=== PATIENT | female | born 1985 | race African-American/Black ===

== ENCOUNTER → 2016-09-07 | Outpatient (CLI) | payer OTHER ==
[~2016-09-07] VITALS: Ht 157.5 cm; Wt 64.0 kg
[~2016-09-07] MED LIST: CYCLOBENZAPRINE 10 MG TAB PO SCH; PRENTAB9 PO
[2016-09-07 09:09] VITALS: BP 126/75
[2016-09-07 10:23] VITALS: BP 121/83
--- NOTE | 2016-09-07 19:46 | HPE ---
DATE OF ADMISSION: 09/07/2016 This lady is a 31-year-old 3, para 0, abortus 2, last menstrual period (LMP) 04/08/2016, estimated date of confinement (EDC) 01/13/2017. She is at 21 and 6 weeks of gestation. 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 She is a twin gestation with dichorionic/diamniotic (di/di) twins. Past history: 2004, spontaneous (AB). 2005, spontaneous AB. Labs are O+, HIV negative, hepatitis negative, RPR negative, rubella immune. Varicella immune. Pap normal. Urine negative. Gonorrhea and chlamydia negative, Blood pressure is 126/75, temperatures 98.0, respirations are 18, pulse 93. Urine is 1.010, pH 7, negative, negative, negative. She is not on 17 hydroxyprogesterone. She was told to discontinue the vaginal progesterone at 12 weeks. On examination, she appears to be distressed, holding her back, massaging her low back between L5 and S1. Symphysis fundus height is 24, heart rate times two is normal. There is no contractions noted. The cervix is closed, posterior. No vaginal loss or bleeding or discharge. Examination of her back you can see muscular spasm in the low back on the long muscles between L5 and S1 and with deep massage they tend to relax a bit, however she tenses up again. The rest of the examination is unremarkable. She is normocephalic, atraumatic. Neck full range of motion. Distal pulses symmetric. No evidence of deep venous thrombosis (DVT), pulmonary embolus (PE) or superficial phlebitis. Chest is clear bilaterally to bases. No wheezes or rhonchi. No CVA tenderness. Symphysis fundus height is appropriate. Four quadrant bowel sounds. No contractions are noted. She has no rashes or lesions. She has multiple tattoos. No pruritus. No arthralgia, myalgia. No complaints of cough, wheeze, shortness of breath or dyspnea on exertion. No chest pain. She is neurologically complete. No incontinency or urgency. No nausea, vomiting, diarrhea or constipation. Past surgical history: She has had a cyst on her coccyx which has been removed. She does not smoke or drink, does not abuse drugs. She is . There is no domestic violence. She is active duty. 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 We offered her Flexeril, hydration, off work with massage and we gave her quarters for 48 hours to come to the office to change her profile. All questions were answered. Pelvic rest with no intercourse was advised and the patient was discharged undelivered.
== END ==
LOC: M LDO 08:46
PROVIDERS: ATTEND Obstetrics & Gynecology
DX: O26.892 Other specified pregnancy related conditions, second trimester (principal); O30.042 Twin pregnancy, dichorionic/diamniotic, second trimester; Z3A.21 21 weeks gestation of pregnancy

== ENCOUNTER 2016-09-08 07:56 | Inpatient (IN) | payer OTHER ==
[2016-09-08] VITALS (7 sets, daily range): BP systolic 125–135; BP diastolic 77–88
[~2016-09-08] VITALS: Ht 157.5 cm; Wt 63.0 kg
[~2016-09-08 07:56] MED LIST changes: -CYCLOBENZAPRINE 10 MG TAB PO SCH
[2016-09-08] MEDS: LR 1,000 ML IV SCH ×2 (08:32→16:32)
[2016-09-08] MEDS ORDERED: LACTATED RINGER'S 1000 ML IV ONE (08:45)
[2016-09-08 08:50] LABS: MEAN CORPUSCULAR HGB CONC 33.6 g/dl (32.0-36.5); MEAN CORPUSCULAR VOLUME 98.1 fl (80.0-96.0); RED CELL DISTRIBUTION WIDTH 14.2 % (11.5-14.5); WHITE BLOOD COUNT 9.7 K/mm3 (4.0-10.0)
[2016-09-08 08:54] LABS: AMPHETAMINES URINE REFLEX NEGATIVE (NEGATIVE); BARBITURATES URINE REFLEX NEGATIVE (NEGATIVE); BENZODIAZEPINES URINE REFLEX NEGATIVE (NEGATIVE); COCAINE METABOLITE URINE REFLE NEGATIVE (NEGATIVE); CONTROL LINE INT CTR LINE PRESENT; METHADONE URINE REFLEX NEGATIVE (NEGATIVE); OPIATES URINE REFLEX NEGATIVE (NEGATIVE); TRICYCLIC ANTIDEPRESS UR REFL NEGATIVE (NEGATIVE)
[2016-09-08 08:57] LABS: ALT/SGPT 29 U/L (12-78); AST/SGOT 25 U/L (15-37); BILIRUBIN,TOTAL 0.3 MG/DL (0.2-1.0); CREATININE FOR GFR 0.65 MG/DL (0.55-1.02); GLOMERULAR FILTRATION RATE > 60.0 (>60)
[2016-09-08] MEDS ORDERED: PROMETHAZINE INJ 25 MG/ML VIAL (J2550) IV ONE (11:00)
[2016-09-08] MEDS ORDERED: BUTORPHANOL 2 MG/ML INJ (J0595) IV ONE (11:00)
--- NOTE | 2016-09-08 11:18 | REP ---
Transabdominal OB ultrasound performed, 09/08/2016: Indication: Twin gestation, cramping and vaginal bleeding. Findings: Diamniotic dichorionic twins are noted. Twin A: The placenta is anterior, grade 0, without previa or abruption. For twin B the placenta is posterior grade 0, also without previa or abruption. The cervix is completely dilated and the membranes are bulging. There is concordant growth for both twins. Fetus A: Amniotic fluid volume is subjectively normal. Intrauterine fetus in variable position on maternal left. Amniotic fluid is subjectively normal. Deepest pocket of amniotic fluid is 6.7 cm. According to today's ultrasound fetus should be 22 week 3 day. EFW 492 grams corresponding to 58th percentile. The heart rate is 160 beats per minute by M-mode. Amniotic fluid index is 6.7, deepest pocket. BPD 5.1 cm = 21 week 3 day HC 19.5 cm = 21 week 5 day AC 17.0 cm = 22 week 0 day FL 4.0 cm = 22 week 6 day HC to AC ratio 1.15. Cephalic index 0.71. Fetus B: Fetus B is in variable position on the maternal right of 22 week 2 day gestational age according to today's ultrasound. Amniotic fluid is subjectively normal. Deepest pocket of amniotic fluid is 8 cm. EFW 489 grams responding to 57th percentile. heart rate 150 beats per minute by M-mode. Amniotic fluid index 8.0 (deepest pocket). Fetus A anatomy: cranium, choroid plexus, cavum, cerebellum, posterior fossa, face and profile, lungs, four-chamber heart, diaphragm, left-sided stomach, cord insertion, three-vessel cord, kidneys and bladder are within normal limits. Fetus B: cranium, choroid plexus, cavum, lungs, diaphragm, left-sided stomach, cord insertion, three-vessel cord, kidneys and bladder are normal. Impression:Diamniotic dichorionic twins with fetus A in variable position on maternal left. The placenta anterior grade 0 without previa or abruption. Fetus A is of 22 week 3 day gestational age according to today's ultrasound. Amniotic fluid index within normal limits. Nuchal cord was not visualized. Twin B in variable position on maternal right. Placenta is posterior, grade 0. A nuchal cord was identified for twin B. The amniotic fluid is subjectively normal with 8 cm depth of greatest pocket. Fully dilated cervix with bulging membranes. Please refer to echocardiography technologist worksheets 09/08/2016. Case discussed with Nurse rehabilitation clerk Aracely in Labor and Delivery on 09/08/2016 at 1045 am. Signed by Libia Mao MD 09/09/2016 10:55 A
[2016-09-08] MEDS ORDERED: LIDOCAINE VISCOUS 2% SOLN 15ML UDC SS PRN (11:30)
[2016-09-08] MEDS: BUTORPHANOL 2 MG/ML INJ (J0595) IV PRN ×3 (13:43→22:27)
[2016-09-08] MEDS: PROMETHAZINE INJ 25 MG/ML VIAL (J2550) IM PRN (22:28)
[2016-09-09] VITALS (8 sets, daily range): BP systolic 102–132; BP diastolic 67–83
[2016-09-09] MEDS: LR 1,000 ML IV SCH ×4 (00:32→16:45)
[2016-09-09] MEDS: BUTORPHANOL 2 MG/ML INJ (J0595) IV PRN ×4 (09:29→23:00)
--- NOTE | 2016-09-09 10:37 | IPNPDOC ---
Text Note Date of Service The patient was seen on 09/09/16 at 10:18. NOTE I assumed care of Janie at [address] Sexton. In brief, Janie is a 31yo with di-di twin gestation via IVF at 21w6d today who is currently admitted for PTL/advanced cervical dilation. She originally presented on 09/07 after 24hr work duty with some cramping/back pain, and per report was found to have closed thick cervix with no evidence of PTL. Was given flexeril and discharged home. She re-presented yesterday, 09/08 with vaginal bleeding and contractions and was found to be fully dilated with bulging bag. PNC consult performed with recommendation to continue as long as possible, but no transfer until 23wk gestation when nearer viability. No indication for antibiotics or tocolytics or steroids, only bedrest in reverse Trendelenburg with SCDs. Since admission and overnight Janie has had 2 doses of IV stadol/phenergan for ctx-related pain. However, this morning she was pain free when I rounded on her and has required no further pain medication. She has anglin in place to maintain bedrest. She denies f/c/n/v/SOB/CP. Has had slight vaginal bleeding but no loss of fluid. Feels movement. Vitals wnl, afebrile Exam: WDWN, NAD Abdomen: gravid, soft, NTTP Perineum: scant blood, no fluid Labs: Negative sequential screen MBT O positive WBC count 9.7, H/H 12/35.8, plt 104 creat 0.65 urine drug screen negative Radiology: TAUS on admission showed twin A 58%ile (492g), FHR 160bpm, MVP >2cm, placenta anterior, twin B 57% (489g), FHR 150bpm, MVP >2cm, placenta posterior. Both twins had variable presentations. Ultrasound showed fully dilated cervix with bulging membranes. Assessment: Janie is a 31yo with di-di twin gestation via IVF at 21w6d today who is currently admitted for PTL/advanced cervical dilation, completely dilated with bulging membranes. No evidence of infection with WBC count 9.7, afebrile. No evidence of abruption. Negative UDS. status reassuring x2. Thrombocytopenia noted with plt 104. Plan: -Continue routine antepartum care -Bed rest in reverse Trendelenburg with anglin catheter and SCDs -Regular diet -NST q4hr -repeat CBC tomorrow am -Spoke with Dr. Woodson, NICU Dr, this morning regarding consult to discuss with patient that no resuscitation will be performed prior to 23wk gestation given poor prognosis and give her a small summary of what to expect if she does continue her beyond 23wk -Plan for transfer to [place] for further care if sustained to 23wk ( at that time would receive betamethasone and IV Magnesium) -All questions answered for patient this morning to her apparent satisfaction -Earlier delivery would be indicated for chorioamnionitis/sepsis or maternal hemorrhage Dr. Mary Rose MD [place] OBERICN VS,Pradeepe, I+O VS, Pradeepe, I+O Vital Signs Date Time Temp Pulse Resp B/P Pulse Ox O2 Delivery O2 Flow Rate FiO2 09/09/16 09:29 18 09/08/16 18:26 97.3 97 132/78 09/08/16 16:49 Room Air I&O- Last 24 Hours up to 6 AM 09/09/16 06:00 Intake Total 2600 ml Output Total 750 ml Balance 1850 ml MARY ROSE MD Sep 09, 2016 10:36
[2016-09-09] MEDS: PROMETHAZINE INJ 25 MG/ML VIAL (J2550) IM PRN (19:32)
--- NOTE | 2016-09-09 20:15 | IPNPDOC ---
Text Note Date of Service The patient was seen on 09/09/16 at 20:10. NOTE Mid-shift Update Please see my note from this morning for thorough history, labs/rads, plan, etc Telethia complained earlier of gush of fluid. Still has bloody show, not obvious amniotic fluid. Nitrazine pressed to her bedsheets and labia, which was grossly positive, but the presence of blood makes it equivocal. She is also having more cramping pain. TAUS performed by this provider showed +FCA x2, MVP >2 x2, dividing membrane freely movable between the twins. Twin A is currently cephalic and Twin B is currently breech. Vitals wnl, afebrile Will await for more definitive evidence of rupture of membranes and consider starting PPROM abx if it is confirmed. Expectant management for now as both twins have FCA and no signs of infection or hemorrhage. Dr. Nadia Rose MD [place] RASHARD VS,Harjinder, I+O VS, Harjinder, I+O Vital Signs Date Time Temp Pulse Resp B/P Pulse Ox O2 Delivery O2 Flow Rate FiO2 09/09/16 19:33 18 Room Air 09/09/16 18:38 98.4 107 114/67 I&O- Last 24 Hours up to 6 AM 09/09/16 06:00 Intake Total 2600 ml Output Total 750 ml Balance 1850 ml NADIA ROSE MD Sep 09, 2016 20:15
[2016-09-10] MEDS: PROMETHAZINE INJ 25 MG/ML VIAL (J2550) IV PRN ×3 (02:48→17:51)
[2016-09-10] MEDS: BUTORPHANOL 2 MG/ML INJ (J0595) IV PRN ×5 (02:49→22:32)
[2016-09-10 06:34] VITALS: BP 105/67
[2016-09-10 07:21] LABS: BASO % 0.1 % (0.0-1.0); EOS % 0.5 % (0.0-3.0); LARGE UNSTAINED CELL # 0.1 K/mm3 (0.0-0.4); LARGE UNSTAINED CELL % 1.1 % (0.0-4.0); LYMPH % 10.5 % (24.0-44.0); MEAN CORPUSCULAR HEMOGLOBIN 32.9 pg (27.0-33.0); MEAN CORPUSCULAR HGB CONC 33.9 g/dl (32.0-36.5); MONO # 0.4 K/mm3 (0.0-0.8); MONO % 3.6 % (0.0-5.0); NEUTROPHILS # 8.3 K/mm3 (1.8-7.7); NEUTROPHILS % 84.1 % (36.0-66.0); PLATELET COUNT, AUTOMATED 100 k/mm3 (150-450); RED CELL DISTRIBUTION WIDTH 14.3 % (11.5-14.5); WHITE BLOOD COUNT 9.9 K/mm3 (4.0-10.0)
[2016-09-10 07:27] LABS: ADD MORPHOLOGY? YES
[2016-09-10 07:58] LABS: PLATELET CLUMPS SMALL AMT
[2016-09-10] MEDS: LR 1,000 ML IV SCH ×3 (08:19→16:32)
[2016-09-10 08:22] VITALS: BP 115/70
[2016-09-10] MEDS ORDERED: ADACEL/BOOSTRIX VACCINE (DIPHTH/PERTUSS/ACELL/TETANUS)0.5ML SYR (90715) IM ONE (09:00)
--- NOTE | 2016-09-10 09:18 | IPNPDOC ---
Text Note Date of Service The patient was seen on 09/10/16 at 08:26. NOTE Please see yesterday morning's note for detailed patient history/labs/rads/etc I spoke with Janie and her this morning- he was able to fly in from [place] late last night and I wanted to answer any questions he might have. She required 2 doses of stadol overnight but this morning feeling no pain. Only having continued scant vaginal bleeding, no obvious fluid loss. Doptones 150's/ 150's. CBC repeated to re-eval WBC and plt, both stable (WBC 9.9, H/H 11/32.4, plt 100 from admission WBC 9.7, H/H 12/35.8, plt 104). I re-asserted our intention to continue the as long as possible, but I spoke with the couple regarding risk for infection now that her membranes are exposed with cervix fully dilated and let them know that if she does begin to have an infection, we would need to expedite delivery for her safety. I let her know we would also need to do this if she began bleeding heavily and required multiple blood transfusions. The couple voiced their understanding. Continue expectant management. If sustained to 23wk, will transfer to [place] with administration of first betamethasone for lung maturity and starting IV Mg for neuroprotection. MD Darrell Scales,Harjinder, I+O VS, Harjinder, I+O Laboratory Tests 09/10/16 07:08 Red Blood Count 3.34 L, Mean Corpuscular Volume 97.0 H, Mean Corpuscular Hemoglobin 32.9, Mean Corpuscular Hemoglobin Concent 33.9, Red Cell Distribution Width 14.3, Neutrophils (%) (Auto) 84.1 H, Lymphocytes (%) (Auto) 10.5 L, Monocytes (%) (Auto) 3.6, Eosinophils (%) (Auto) 0.5, Basophils (%) ( Auto) 0.1, Neutrophils # (Auto) 8.3 H, Lymphocytes # (Auto) 1.0 L, Monocytes # ( Auto) 0.4, Eosinophils # (Auto) 0.0, Basophils # (Auto) 0.0 Vital Signs Date Time Temp Pulse Resp B/P Pulse Ox O2 Delivery O2 Flow Rate FiO2 09/10/16 02:49 18 09/09/16 21:58 98.7 109 112/67 09/09/16 19:33 Room Air I&O- Last 24 Hours up to 6 AM 09/10/16 06:00 Intake Total 2115 ml Output Total 3900 ml Balance -1785 ml MARY CLEMENTS MD Sep 10, 2016 08:47
[2016-09-10] MEDS ORDERED: LIDOCAINE 2% JELLY 30 ML TOP ONE (09:30)
[2016-09-10 11:35] VITALS: BP 108/75
[2016-09-10 15:43] VITALS: BP 108/68
[2016-09-10 20:03] VITALS: BP 115/83
[2016-09-11] VITALS (7 sets, daily range): BP systolic 112–134; BP diastolic 66–80
[2016-09-11] MEDS: LR 1,000 ML IV SCH ×3 (00:32→16:37)
[2016-09-11] MEDS: PROMETHAZINE INJ 25 MG/ML VIAL (J2550) IV PRN (01:57)
[2016-09-11] MEDS: BUTORPHANOL 2 MG/ML INJ (J0595) IV PRN ×4 (01:57→22:44)
[2016-09-11] MEDS: DOCUSATE SODIUM 100 MG CAP PO SCH ×2 (09:15→21:51)
[2016-09-11] MEDS: PRENATAL VITAMIN TAB PO SCH (09:15)
[2016-09-11] MEDS: LIDOCAINE 2% JELLY 30 ML TOP PRN (16:37)
[2016-09-12] VITALS (7 sets, daily range): BP systolic 111–136; BP diastolic 59–78
[2016-09-12] MEDS ORDERED: ONDANSETRON 4MG/2ML VIAL (J2405) As Ordered ONE (02:24)
[2016-09-12] MEDS: ONDANSETRON 4MG/2ML VIAL (J2405) IV PRN ×2 (02:32→22:57)
[2016-09-12] MEDS: BUTORPHANOL 2 MG/ML INJ (J0595) IV PRN ×4 (04:48→18:35)
[2016-09-12 05:48] LABS: BASO # 0.1 K/mm3 (0.0-0.2); BASO % 0.7 % (0.0-1.0); EOS # 0.1 K/mm3 (0.0-0.50); LARGE UNSTAINED CELL # 0.1 K/mm3 (0.0-0.4); LARGE UNSTAINED CELL % 1.3 % (0.0-4.0); LYMPH % 8.6 % (24.0-44.0); MEAN CORPUSCULAR HEMOGLOBIN 31.7 pg (27.0-33.0); MEAN CORPUSCULAR HGB CONC 32.3 g/dl (32.0-36.5); MEAN CORPUSCULAR VOLUME 98.1 fl (80.0-96.0); MONO # 0.4 K/mm3 (0.0-0.8); MONO % 4.1 % (0.0-5.0); NEUTROPHILS # 8.3 K/mm3 (1.8-7.7); NEUTROPHILS % 84.3 % (36.0-66.0); PLATELET COUNT, AUTOMATED 101 k/mm3 (150-450); RED CELL DISTRIBUTION WIDTH 14.8 % (11.5-14.5); WHITE BLOOD COUNT 9.9 K/mm3 (4.0-10.0)
--- NOTE | 2016-09-12 07:07 | IPNPDOC ---
Text Note Date of Service The patient was seen on 09/12/16 at 07:03. NOTE See prior notes She required 2 doses of stadol overnight but this morning feeling wel. No vaginal bleeding, no obvious fluid loss. Would like to have a BM, knows not to valsalva. CBC repeated this AM, WBC 9.9, H/H 11/34.1, plt 101, all stable, no dropping PLT or increasing WBC. VSSAF Abdomen nontender limited TAUS shows A-breech, active, FHR 150's, nl fluid surrounding B-vtx, active, FHR 150's, nl fluid surrounding Continue expectant management until 31JAN, 23 wks. If sustained to 23wk, will transfer to [place] with administration of first betamethasone for lung maturity and starting IV Mg for neuroprotection, possibly IV ABX as well. Sessions MD MAURO,Harjinder, I+O VS, Harjinder I+O Laboratory Tests 09/12/16 05:15 Red Blood Count 3.48 L, Mean Corpuscular Volume 98.1 H, Mean Corpuscular Hemoglobin 31.7, Mean Corpuscular Hemoglobin Concent 32.3, Red Cell Distribution Width 14.8 H, Neutrophils (%) (Auto) 84.3 H, Lymphocytes (%) (Auto ) 8.6 L, Monocytes (%) (Auto) 4.1, Eosinophils (%) (Auto) 1.0, Basophils (%) ( Auto) 0.7, Neutrophils # (Auto) 8.3 H, Lymphocytes # (Auto) 1.0 L, Monocytes # ( Auto) 0.4, Eosinophils # (Auto) 0.1, Basophils # (Auto) 0.1 Vital Signs Date Time Temp Pulse Resp B/P Pulse Ox O2 Delivery O2 Flow Rate FiO2 09/12/16 04:59 98.7 20 09/12/16 04:49 88 112/78 09/11/16 22:44 Room Air I&O- Last 24 Hours up to 6 AM 09/12/16 06:00 Intake Total 3175 ml Output Total 3200 ml Balance -25 ml SESSIONS,JORDON Barnhart MD Sep 12, 2016 07:07
[2016-09-12] MEDS ORDERED: BISACODYL 10 MG SUPP PR SCH (09:00)
[2016-09-12] MEDS: DOCUSATE SODIUM 100 MG CAP PO SCH ×2 (09:17→20:43)
[2016-09-12] MEDS: PRENATAL VITAMIN TAB PO SCH (09:17)
[2016-09-12] MEDS: LR 1,000 ML IV SCH (09:18)
[2016-09-12] MEDS ORDERED: BISACODYL 10 MG SUPP PR ONE (10:15)
[2016-09-12] MEDS ORDERED: MOM 30ML SUSPENSION UDC PO PRN (10:15)
[2016-09-12] MEDS: PROMETHAZINE INJ 25 MG/ML VIAL (J2550) IV PRN ×2 (10:40→18:34)
[2016-09-12] MEDS: diphenhydrAMINE INJ 50MG/ML VIAL (J1200) IV PRN ×2 (15:19→21:24)
[2016-09-12] MEDS: CYCLOBENZAPRINE 10 MG TAB PO PRN ×2 (15:19→20:44)
[2016-09-12] MEDS: LIDOCAINE 2% JELLY 30 ML TOP PRN (20:00)
[2016-09-13] MEDS: PROMETHAZINE INJ 25 MG/ML VIAL (J2550) IV PRN (00:42)
[2016-09-13] MEDS: BUTORPHANOL 2 MG/ML INJ (J0595) IV PRN (00:43)
[2016-09-13] MEDS ORDERED: OXYTOCIN 30 UNITS IN 0.9% NaCl 500ML IV BAG (J2590) As Ordered ONE (02:37)
[2016-09-13 02:52] VITALS: BP 123/69
[2016-09-13 02:58] VITALS: BP 107/68
[2016-09-13] MEDS ORDERED: FENTANYL 2MCG/ML ROPIVACAINE 0.2% NACL 250 ML CADD As Ordered ONE (03:02)
[2016-09-13 03:18] VITALS: BP 118/74
[2016-09-13 03:46] LABS: MEAN CORPUSCULAR HEMOGLOBIN 31.8 pg (27.0-33.0); MEAN CORPUSCULAR HGB CONC 32.8 g/dl (32.0-36.5); RED CELL DISTRIBUTION WIDTH 13.8 % (11.5-14.5); WHITE BLOOD COUNT 10.8 K/mm3 (4.0-10.0)
[2016-09-13] MEDS ORDERED: OXYTOCIN DRIP 30 UNITS in APPROPRIATE DILUENT 1 EA IV SCH (04:33)
[2016-09-13] MEDS ORDERED: IBUPROFEN 600 MG TAB PO PRN (04:45)
[2016-09-13] MEDS ORDERED: MEASLES,MUMPS,RUBELLA VACCINE INJ (MMR-II) (90707) SC SCH (04:45)
[2016-09-13] MEDS ORDERED: DIBUCAINE 1% OINTMENT 30GM TOP PRN (04:45)
[2016-09-13] MEDS ORDERED: ANUSOL HC CREAM 30GM TOP PRN (04:45)
[2016-09-13] MEDS ORDERED: OXYTOCIN INJ 10 UNITS/ML VIAL (J2590) IV ONE (04:45)
[2016-09-13] MEDS ORDERED: METHYLERGONOVINE MALEATE 0.2 MG TAB PO PRN (04:45)
[2016-09-13] MEDS ORDERED: ACETAMINOPHEN 500 MG TAB PO PRN (04:45)
[2016-09-13] MEDS ORDERED: RHOGAM 300 MCG (1500 IU) INJ (J2790) IM SCH (04:45)
[2016-09-13] MEDS ORDERED: REFRIGERATOR IV KEYS XX PRN (07:15)
[2016-09-13] MEDS ORDERED: EPIDURAL COMMENT XX SCH (07:15)
[2016-09-13] MEDS ORDERED: FENTANYL/ROPIVACAINE/NACL CADD 250 ML EPIDURAL SCH (07:15)
[2016-09-13] MEDS ORDERED: EPIDURAL/PCA KEYS XX PRN (07:15)
[2016-09-13] MEDS ORDERED: LACTATED RINGER'S 1000 ML IV PRN (07:15)
[2016-09-13] MEDS ORDERED: ePHEDrine SULFATE 25 MG/5 ML(5MG/ML) SYRINGE IV PRN (07:15)
[2016-09-13] MEDS ORDERED: COLA100C PO (10:03)
[2016-09-13] MEDS ORDERED: IBUP600T26 PO (10:03)
[2016-09-13] MEDS ORDERED: ACET500C PO (10:03)
[2016-09-13] MEDS ORDERED: DIBU0.5O TOP (10:03)
--- NOTE | 2016-09-25 09:55 | DSES ---
DATE OF ADMISSION: 09/08/2016 DATE OF DISCHARGE: 09/13/2016 This lady, dated 09/08/2016, returned after 24 hours of being evaluated in labor and delivery because she was having some vaginal bleeding and irregular contractions. She was known at this time to have Di/Di twins. Her past history is that she had two spontaneous abortions. She saw Dr. Turner, infertility. She had in vitro fertilization (IVF) due to low sperm count in the . She also had a consult with Dr. Mcgregor regarding an echogenic intracardiac focus (EIF) and declined further testing. When she was admitted this second time, there was a heart rate noted in either sac. Pelvic examination there was obviously bulging membranes. She was fully dilated. Position at that time was not documented. We used an ultrasound in order to confirm there were Di/Di twins, active, approximately 490 grams and 484 grams. Position was variable because of the activity of the fetus. Thy were at approximately 22 weeks of gestation with normal amniotic fluid index (BILL) in both sacs. On admission, her blood pressure [id number]/81, respirations were 18, pulse was 98. Her hemoglobin was 12.2, hematocrit 35.8, and at that time we noticed that she had platelets of 100 and throughout her course hospital she gestational thrombocytopenia. She had been seen in centering classes for six visits. She had normal weight gain. She does not do drugs. She does not smoke. She does no alcohol. 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 She was given some Flexeril, which gave her some immediate relief. Her blood group was O+, HIV negative, hepatitis negative, RPR negative. Varicella negative. Pap was normal. Urine was negative. Gonorrhea and chlamydia were negative. CF was negative. Dr. Mcgregor was consulted at this time and he suggested if she is having imminent delivery 22 weeks there was a poor prognosis. There was no indication at this time for antibiotics, steroids or tocolysis, and the plan was to send the placentas and do a Betke-Kleihauer, do a drug screen, which we did, all was negative. Reviewed the plan of care with the patient. Said if she can get into 23 weeks then [facility] would accept her. However, we have a guarded prognosis. She had agreed to the plan of management. She was placed in Trendelenburg, had sequentials on board, incentive spirometry, monitoring as per protocol. Appropriate pain management and hydration were indicated. Patient did continue on until 22 weeks. At which time, we were called because the patient had expressed excruciating pressure and she had contractions, and despite adequate pain management she continued on, had a spontaneous rupture of membranes of twin A, delivered a live male infant 448 grams, of 2 and 2 at one of five minutes respectively, delivered at 2:34 a.m. She went on to continue in labor and delivered twin B female after spontaneous rupture of membranes, 498 grams, of 2 and 2 at one and five minutes respectively, at 4:48 a.m. Both babies to closer to the 6:00 a.m. in the morning and compassionate care was given to both. Patient spontaneously delivered both placentas with no issues, no consequence. They were sent to pathology indicating Di/Di twins. There was clot in placenta A. No evidence of chorioamnionitis. Patient's uterus contracted well with Pitocin. Minimal bleeding. She wished to be discharged as soon as possible. We suggested an appropriate interval time to make sure everything was fine and the patient and agreed. On discharge, patient was afebrile. Neuro complete. Blood pressure, pulse and respirations were normal limits. She was not bleeding. She was counseled regarding bleeding, fever, hemorrhage, infection. The patient did not request autopsy for either infant. Did request to have the babies released and be looked after by the appropriate home. All papers and documents were signed. In summary, we have a 3, para 1, history of in vitro fertilization (IVF), 22 weeks of gestation, had a labor with dilatation and spontaneous rupture of membranes, delivery of nonviable infant twin A male and twin B female. The gestational thrombocytopenia will be addressed at her checkup. We will review her complete blood count (CBC). Drug screen was negative. Betke-Kleihauer was negative and placentas were sent to pathology as appropriately. Patient was discharged to followup in the office. She was also offered grief counseling, but she has good family support and suggested that she was not needing of it at this time. However, if she did need extra support she would definitely call. We spent 25 minutes on discharge discussion about the future , timing, etc, and I said that we should address that at an appropriate discussion consultation visit.
== END 2016-09-13 10:45 | disposition home or self-care (01) | DRG 775 ==
LOC: M LDO 07:56 → M LDI 08:05 → M OBS 09-12 18:04 → M LDI 09-13 01:38
PROVIDERS: ADMIT Obstetrics & Gynecology; ATTEND Obstetrics & Gynecology
PROC: 10E0XZZ Delivery of Products of Conception, External Approach (ICD-10-PCS; principal; 2016-09-13)
DX: O42.012 Preterm premature rupture of membranes, onset of labor within 24 hours of rupture, second trimester (principal); O99.12 Other diseases of the blood and blood-forming organs and certain disorders involving the immune mechanism complicating childbirth; Z37.2 Twins, both liveborn; O30.042 Twin pregnancy, dichorionic/diamniotic, second trimester; Z3A.22 22 weeks gestation of pregnancy; D69.6 Thrombocytopenia, unspecified; O64.1XX1 Obstructed labor due to breech presentation, fetus 1; O64.1XX2 Obstructed labor due to breech presentation, fetus 2

== ENCOUNTER → 2016-12-18 | Outpatient (CLI) | payer OTHER ==
[~2016-12-18] MED LIST changes: +ACET500C PO; +COLA100C3 PO; +DIBU0.5O TOP; +IBUP600T26 PO
[2016-12-18 14:54] LABS: ESTRADIOL 682.7 PG/ML; FOLLICLE STIMULATING HORMONE < 0.3 mIU/mL
[2016-12-18 15:22] LABS: HCG, SERUM QUANTITATIVE 944 MIU/ML
== END ==
LOC: M LAB 11:49
PROVIDERS: ATTEND Obstetrics & Gynecology Reproductive Endocrinology
DX: Z32.00 Encounter for pregnancy test, result unknown (principal); N97.9 Female infertility, unspecified

== ENCOUNTER 2017-02-03 08:43 | Emergency (ER) | payer OTHER ==
[~2017-02-03] VITALS: Ht 157.5 cm; Wt 60.2 kg
[~2017-02-03 08:43] MED LIST changes: -COLA100C3 PO; +COLA100C5 PO; +IBUP-1022 PO; -IBUP600T26 PO
[2017-02-03] MEDS ORDERED: ENDO100S VA (09:14)
[2017-02-03 11:48] LABS: BASO % 0.2 % (0.0-1.0); EOS # 0.1 K/mm3 (0.0-0.50); EOS % 0.9 % (0.0-3.0); LARGE UNSTAINED CELL # 0.1 K/mm3 (0.0-0.4); LARGE UNSTAINED CELL % 1.3 % (0.0-4.0); LYMPH # 1.1 K/mm3 (1.5-6.5); LYMPH % 16.5 % (24.0-44.0); MEAN CORPUSCULAR HEMOGLOBIN 29.3 pg (27.0-33.0); MEAN CORPUSCULAR HGB CONC 33.3 g/dl (32.0-36.5); MEAN CORPUSCULAR VOLUME 87.9 fl (80.0-96.0); MONO # 0.2 K/mm3 (0.0-0.8); MONO % 2.9 % (0.0-5.0); NEUTROPHILS # 4.9 K/mm3 (1.8-7.7); NEUTROPHILS % 78.1 % (36.0-66.0); PLATELET COUNT, AUTOMATED 186 k/mm3 (150-450); RED CELL DISTRIBUTION WIDTH 16.5 % (11.5-14.5); WHITE BLOOD COUNT 6.2 K/mm3 (4.0-10.0)
--- NOTE | 2017-02-03 12:05 | REP ---
REASON: Vaginal bleeding. No pertinent priors. Within the uterus, there is an anechoic structure with increased echoes surrounding it consistent with a decidual reaction. Within the gestational sac, there is echogenic material with a mean crown-rump length measurement of which is consistent with an 46-tgui-8-day gestational age. Base on that, the estimated date of delivery is 08/21/2017. Doppler interrogation of the pole shows a heart rate of 155 beats per minute. No chorionic or subchorionic abnormality was noted. A right adnexal cyst was seen measuring 2.2 cm. IMPRESSION: Early OB ultrasound as described above. Signed by Matt Bee DO 02/03/2017 03:58 P
[2017-02-03 12:18] LABS: ALBUMIN 3.4 GM/DL (3.2-5.2); ALBUMIN/GLOBULIN RATIO 0.89 (1.00-1.93); ALKALINE PHOSPHATASE 68 U/L (45-117); ALT/SGPT 18 U/L (12-78); ANION GAP 7 MEQ/L (8-16); AST/SGOT 12 U/L (15-37); BILIRUBIN,DIRECT < 0.1 MG/DL (0.0-0.2); BILIRUBIN,TOTAL 0.3 MG/DL (0.2-1.0); BLOOD UREA NITROGEN 7 MG/DL (7-18); CALCIUM LEVEL 9.4 MG/DL (8.5-10.1); CARBON DIOXIDE LEVEL 24 MEQ/L (21-32); CHLORIDE LEVEL 108 MEQ/L (98-107); CREATININE FOR GFR 0.63 MG/DL (0.55-1.02); GLOMERULAR FILTRATION RATE > 60.0 (>60); GLUCOSE, FASTING 79 MG/DL (70-105); HCG, SERUM QUANTITATIVE 79496 MIU/ML; SODIUM LEVEL 139 MEQ/L (136-145); TOTAL PROTEIN 7.2 GM/DL (6.4-8.2)
[2017-02-03 13:13] VITALS: BP 112/73
== END 2017-02-03 13:13 | disposition home or self-care (01) ==
LOC: M ED 10:12
DX: O20.9 Hemorrhage in early pregnancy, unspecified (principal); Z3A.11 11 weeks gestation of pregnancy

== ENCOUNTER 2017-03-08 07:59 | Emergency (ER) | payer OTHER ==
[~2017-03-08 07:59] MED LIST changes: +ENDO100S VA
[2017-03-08] MEDS ORDERED: ZOLO100T PO (08:15)
[2017-03-08 08:45] LABS: BASO % 0.1 % (0.0-1.0); EOS # 0.2 K/mm3 (0.0-0.50); EOS % 2.4 % (0.0-3.0); LARGE UNSTAINED CELL # 0.1 K/mm3 (0.0-0.4); LARGE UNSTAINED CELL % 1.4 % (0.0-4.0); MEAN CORPUSCULAR HEMOGLOBIN 29.8 pg (27.0-33.0); MEAN CORPUSCULAR HGB CONC 33.7 g/dl (32.0-36.5); MEAN CORPUSCULAR VOLUME 88.3 fl (80.0-96.0); MONO # 0.3 K/mm3 (0.0-0.8); MONO % 3.6 % (0.0-5.0); NEUTROPHILS # 5.8 K/mm3 (1.8-7.7); NEUTROPHILS % 79.5 % (36.0-66.0); PLATELET COUNT, AUTOMATED 157 k/mm3 (150-450); RED CELL DISTRIBUTION WIDTH 16.3 % (11.5-14.5); WHITE BLOOD COUNT 7.3 K/mm3 (4.0-10.0)
[2017-03-08] MEDS ORDERED: MICO1SUP2 PV (10:15)
[2017-03-08 10:43] VITALS: BP 105/73
--- NOTE | 2017-03-08 12:19 | REP ---
OB ULTRASOUND: Real-time sonographic evaluation of the gravid uterus performed utilizing transabdominal technique. There is a single living intrauterine gestation with an estimated gestational age of 15 weeks 2 days. EDC 08/28/2017. Today's measurements indicate appropriate growth. BPD 34 mm 16 weeks 3 days, 95th percentile HC 122 mm 16 weeks 1 day, 80th percentile AC 102 mm 16 weeks 1 day, 74th percentile FL 21 mm 16 weeks 1 day, 79th percentile HC/AC ratio 1.20 within normal range. Estimated weight 149 grams at the 84th percentile. Cervix is closed and measures 3.3 cm in length. heart rate 139 beats per minute. SEEN/GROSSLY UNREMARKABLE Lateral ventricles Yes Posterior fossa Yes Upper lip No Four-chamber heart No LVOT No RVOT No Stomach Yes Cord insertion Yes Three vessel cord Yes Kidneys Yes Bladder Yes Spine Yes position vertex. Placenta anterior and grade 0 with no previa or abruption. Amniotic fluid within normal limits. Signed by Jono Moreno MD 03/08/2017 03:20 P
== END 2017-03-08 10:46 | disposition home or self-care (01) ==
LOC: M ED 07:59
DX: O23.592 Infection of other part of genital tract in pregnancy, second trimester (principal); Z79.899 Other long term (current) drug therapy; Z3A.15 15 weeks gestation of pregnancy

== ENCOUNTER 2017-04-06 13:38 | Emergency (ER) | payer OTHER ==
[~2017-04-06] VITALS: Ht 157.5 cm; Wt 63.4 kg
[~2017-04-06 13:38] MED LIST changes: +MICO1SUP2 PV; +ZOLO100T PO
[2017-04-06] MEDS ORDERED: ZOLO100T PO (13:59)
[2017-04-06] MEDS ORDERED: PROG50IN5 IM (13:59)
[2017-04-06 16:18] VITALS: BP 133/64
--- NOTE | 2017-04-07 11:53 | REP ---
LIMITED OBSTETRIC SONOGRAPHY: HISTORY: Crampy watery discharge for amniotic fluid assessment. FINDINGS: Scanning through the gravid uterus demonstrates a viable single intrauterine gestation in a cephalic lie. heart rate is recorded at 133 beats per minute. An anterior placenta is seen without evidence of previa. Amniotic fluid is subjectively normal. BILL is normal at 11.7 cm. The S/D ratio in the umbilical cord artery by Doppler is slightly decreased at 3.46 (3.80-4.60). Closed cervical length viewed transvaginally is 3.9 cm. Signed by Favio Yanez MD 04/07/2017 12:37 P
--- NOTE | 2017-04-07 13:45 | ED PDOC ---
Post-Departure Follow-Up ft [facility] ob faxed formal re[port of obs us for fu debbieg Goyo Pickering MD Apr 07, 2017 13:45
== END 2017-04-06 16:20 | disposition home or self-care (01) ==
LOC: M ED 13:38
DX: O26.892 Other specified pregnancy related conditions, second trimester (principal); R10.2 Pelvic and perineal pain; Z3A.19 19 weeks gestation of pregnancy; N96 Recurrent pregnancy loss; Z79.899 Other long term (current) drug therapy

== ENCOUNTER 2017-06-07 16:31 | Outpatient (CLI) | payer OTHER ==
[~2017-06-07] VITALS: Ht 157.5 cm; Wt 70.5 kg
[~2017-06-07 16:31] MED LIST changes: +PROG50IN5 IM
[2017-06-07 16:46] VITALS: BP 121/77
--- NOTE | 2017-06-07 18:46 | HPE ---
DATE OF ADMISSION: 06/07/2017 HISTORY OF PRESENT ILLNESS: A 32-year-old 4, para 2, abortio 2, estimated date of confinement (EDC) 08/26/2017, at 23 weeks of gestation, came in saying that she had contractions but they stopped as soon as she got to labor and delivery. PAST HISTORY: She had delivery of twins at 22 weeks, , and she has significant depression. LABORATORY DATA: Labs are O positive, HIV negative, hepatitis negative, RPR negative, rubella immune. Varicella by history immune. Pap was normal. Gonorrhea, chlamydia negative. One-hour glucose is not available. She 24 hours ago had her progesterone shot. She is still 17-hydroxyprogesterone. Her last cervical length was within normal limits. EXAMINATION: On examination, no distress. Symphysis fundus height is 28, vertex, nontender uterus, four quadrant bowel sounds are noted. Not dilated, high posterior, closed. fibronectin (fFN) was performed. No vaginal bleeding. No loss of fluid. Blood pressure 121/77, respirations 18, pulse is 85 and temperature is 98.3. Urine is 1.010, pH seven, trace of leukocytes. She is normocephalic, atraumatic. Neck full range of motion. Pupils equal and reactive to light. Distal pulses symmetric. No evidence of deep venous thrombosis (DVT), pulmonary embolism (PE) or superficial phlebitis. Chest is clear bilaterally to bases. No wheezes or rhonchi. Nontender uterus. Four quadrant bowel sounds are noted. She has no rashes, lesions or pruritus with multiple tattoos. No arthralgia, myalgia. No complaints of cough, wheezes, shortness of breath or dyspnea on exertion. No chest pain. Not bleeding. Neuro complete. No incontinence, urgency or frequency. No nausea, vomiting, diarrhea or constipation. 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 MEDICAL HISTORY: Unremarkable. PAST SURGICAL HISTORY: Two dilation and curettage (D and C) for spontaneous abortions 2004 and 2005. FAMILY HISTORY: Noncontributory. SOCIAL HISTORY: She does not smoke, drink, abuse drugs. She is . There is no domestic violence. 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 PLAN: Our plan of management is do fFN. Precautions were given. She is to keep her appointment and she was discharged undelivered to followup in the office.
== END 2017-06-07 18:14 | disposition home or self-care (01) ==
LOC: M LDO 16:31
PROVIDERS: ATTEND Obstetrics & Gynecology
DX: O26.892 Other specified pregnancy related conditions, second trimester (principal); Z3A.23 23 weeks gestation of pregnancy

== ENCOUNTER 2017-08-18 11:50 | Emergency (ER) | payer OTHER ==
[2017-08-18 12:44] LABS: KETONE, URINE AUTO RFX NEGATIVE (NEGATIVE); NITRITE, URINE AUTO RFX NEGATIVE (NEGATIVE); RBC, URINE AUTO RFX 2 /HPF (0-3); SPECIFIC GRAVITY UR AUTO RFX 1.004 (1.002-1.035); SQUAM EPITHELIAL CELL UR AURFX 2 /HPF (0-6)
[2017-08-18 12:45] LABS: LEUKOCYTE ESTERASE UR AUTO RFX 3+ (NEGATIVE); WBC, URINE AUTO RFX 12 /HPF (0-3)
[2017-08-18] MEDS: CEPHALEXIN 500 MG CAP PO ×2 (13:30)
== END 2017-08-18 13:34 | disposition admitted as inpatient to this hospital (09) ==
LOC: M ED 11:50
DX: O23.43 Unspecified infection of urinary tract in pregnancy, third trimester (principal); Z3A.38 38 weeks gestation of pregnancy; O99.343 Other mental disorders complicating pregnancy, third trimester; F41.9 Anxiety disorder, unspecified; F33.9 Major depressive disorder, recurrent, unspecified; F43.10 Post-traumatic stress disorder, unspecified; O09.293 Supervision of pregnancy with other poor reproductive or obstetric history, third trimester; Z98.890 Other specified postprocedural states
CPT/HCPCS: J2543

== ENCOUNTER 2017-08-18 13:33 | Outpatient (CLI) | payer OTHER ==
[2017-08-18] MEDS: LR 1,000 ML IV (15:00)
[2017-08-18] MEDS: PIPERACILLIN/TAZOBACTAM SOD 3.375 GM in APPROPRIATE DILUENT 1 EA IV (15:55)
[2017-08-18] MEDS ORDERED: LR 1,000 ML IV (16:00)
[2017-08-18] MEDS: NS 500 ML IV (16:00)
== END 2017-08-18 20:50 | disposition home or self-care (01) ==
LOC: M LDO 13:33
DX: O23.43 Unspecified infection of urinary tract in pregnancy, third trimester (principal); O62.0 Primary inadequate contractions; O99.343 Other mental disorders complicating pregnancy, third trimester; Z3A.38 38 weeks gestation of pregnancy
CPT/HCPCS: 96365

== ENCOUNTER 2017-08-21 12:39 | Inpatient (IN) | payer OTHER ==
[2017-08-21] MEDS ORDERED: LR 1,000 ML IV (13:00)
[2017-08-21] MEDS: LR 1,000 ML IV ×2 (14:23→22:48)
[2017-08-21 14:50] LABS: ALBUMIN 2.8 GM/DL (3.2-5.2); ALBUMIN/GLOBULIN RATIO 0.76 (1.00-1.93); ALKALINE PHOSPHATASE 164 U/L (45-117); ALT/SGPT 16 U/L (12-78); ANION GAP 10 MEQ/L (8-16); AST/SGOT 23 U/L (7-37); BILIRUBIN,TOTAL 0.3 MG/DL (0.2-1.0); BLOOD UREA NITROGEN 10 MG/DL (7-18); CALCIUM LEVEL 9.6 MG/DL (8.5-10.1); CARBON DIOXIDE LEVEL 20 MEQ/L (21-32); CHLORIDE LEVEL 111 MEQ/L (98-107); GLOMERULAR FILTRATION RATE > 60.0 (>60); GLUCOSE, FASTING 81 MG/DL (70-105); POTASSIUM SERUM 4.2 MEQ/L (3.5-5.1); SODIUM LEVEL 141 MEQ/L (136-145); TOTAL PROTEIN 6.5 GM/DL (6.4-8.2)
[2017-08-21] MEDS: OXYTOCIN DRIP 30 UNITS in APPROPRIATE DILUENT 1 EA IV (14:54)
[2017-08-21 15:00] LABS: TOTAL PROTEIN,RANDOM URINE 50.3 MG/DL (0.0-12.0)
[2017-08-21 15:01] LABS: AMPHETAMINES URINE REFLEX NEGATIVE (NEGATIVE); BARBITURATES URINE REFLEX NEGATIVE (NEGATIVE); BENZODIAZEPINES URINE REFLEX NEGATIVE (NEGATIVE); CANNABINOIDS URINE REFLEX NEGATIVE (NEGATIVE); COCAINE METABOLITE URINE REFLE NEGATIVE (NEGATIVE); METHADONE URINE REFLEX NEGATIVE (NEGATIVE); OPIATES URINE REFLEX NEGATIVE (NEGATIVE); PHENCYCLIDINE URINE REFLEX NEGATIVE (NEGATIVE)
[2017-08-21 15:17] LABS: HEMOGLOBIN 12.8 g/dl (12.0-16.0); MEAN CORPUSCULAR HEMOGLOBIN 31.8 pg (27.0-33.0); MEAN CORPUSCULAR HGB CONC 34.6 g/dl (32.0-36.5); MEAN CORPUSCULAR VOLUME 91.8 fl (80.0-96.0); RED BLOOD COUNT 4.03 10^6/uL (4.00-5.40); RED CELL DISTRIBUTION WIDTH 13.1 % (11.5-14.5); WHITE BLOOD COUNT 8.2 10^3/uL (4.0-10.0)
[2017-08-21 15:19] LABS: PLATELET COUNT, AUTOMATED 72 10^3/uL (150-450)
[2017-08-21 15:20] LABS: IMMATURE PLATELET FRACTION % 42.8 % (0.0-9.6)
[2017-08-21 18:23] LABS: HEMATOCRIT 38.8 % (36.0-47.0); MEAN CORPUSCULAR HGB CONC 33.5 g/dl (32.0-36.5); MEAN CORPUSCULAR VOLUME 92.6 fl (80.0-96.0); RED BLOOD COUNT 4.19 10^6/uL (4.00-5.40); RED CELL DISTRIBUTION WIDTH 13.2 % (11.5-14.5); WHITE BLOOD COUNT 8.4 10^3/uL (4.0-10.0)
[2017-08-21 18:36] LABS: PLATELET COUNT, AUTOMATED 74 10^3/uL (150-450)
[2017-08-21] MEDS ORDERED: CALCIUM GLUCONATE 1,000 MG in D5W MINI-BAG PLUS 100 ML IV (19:00)
[2017-08-21] MEDS: MAG Sulf (L&D) 4 GM/100 ML 4 GM in APPROPRIATE DILUENT 1 EA IV (19:56)
[2017-08-21] MEDS: MAG Sulf (OBGYN) 20GM/500ML 20,000 MG in APPROPRIATE DILUENT 1 EA IV (20:18)
[2017-08-21] MEDS: PROMETHAZINE INJ 25 MG/ML VIAL (J2550) IV (23:36)
[2017-08-21] MEDS: NALBUPHINE HCL 10 MG/ML AMP (J2300) IV (23:36)
[2017-08-21] MEDS: NALBUPHINE HCL 10 MG/ML AMP (J2300) IM (23:36)
[2017-08-22 02:34] LABS: HEMOGLOBIN 13.3 g/dl (12.0-16.0); MEAN CORPUSCULAR HEMOGLOBIN 31.1 pg (27.0-33.0); MEAN CORPUSCULAR HGB CONC 33.3 g/dl (32.0-36.5); MEAN CORPUSCULAR VOLUME 93.7 fl (80.0-96.0); RED BLOOD COUNT 4.27 10^6/uL (4.00-5.40); RED CELL DISTRIBUTION WIDTH 13.2 % (11.5-14.5); WHITE BLOOD COUNT 11.1 10^3/uL (4.0-10.0)
[2017-08-22 02:37] LABS: PLATELET COUNT, AUTOMATED 71 10^3/uL (150-450)
[2017-08-22 02:38] LABS: IMMATURE PLATELET FRACTION % 41.2 % (0.0-9.6)
[2017-08-22 02:45] LABS: ALBUMIN 2.7 GM/DL (3.2-5.2); ALBUMIN/GLOBULIN RATIO 0.63 (1.00-1.93); ALKALINE PHOSPHATASE 160 U/L (45-117); ALT/SGPT 18 U/L (12-78); ANION GAP 10 MEQ/L (8-16); AST/SGOT 22 U/L (7-37); BILIRUBIN,TOTAL 0.4 MG/DL (0.2-1.0); BLOOD UREA NITROGEN 8 MG/DL (7-18); CALCIUM LEVEL 8.2 MG/DL (8.5-10.1); CARBON DIOXIDE LEVEL 22 MEQ/L (21-32); CHLORIDE LEVEL 105 MEQ/L (98-107); CREATININE FOR GFR 0.75 MG/DL (0.55-1.02); GLOMERULAR FILTRATION RATE > 60.0 (>60); GLUCOSE, FASTING 108 MG/DL (70-105); POTASSIUM SERUM 3.4 MEQ/L (3.5-5.1); SODIUM LEVEL 137 MEQ/L (136-145)
[2017-08-22 02:53] LABS: MAGNESIUM LEVEL 5.3 MG/DL (1.8-2.4)
[2017-08-22] MEDS: PROMETHAZINE INJ 25 MG/ML VIAL (J2550) IV (06:22)
[2017-08-22] MEDS: NALBUPHINE HCL 10 MG/ML AMP (J2300) IV (06:22)
[2017-08-22] MEDS: MAG Sulf (OBGYN) 20GM/500ML 20,000 MG in APPROPRIATE DILUENT 1 EA IV ×3 (06:23→21:56)
[2017-08-22 08:29] LABS: HEMATOCRIT 41.5 % (36.0-47.0); HEMOGLOBIN 14.1 g/dl (12.0-16.0); MEAN CORPUSCULAR HEMOGLOBIN 31.6 pg (27.0-33.0); RED BLOOD COUNT 4.46 10^6/uL (4.00-5.40); RED CELL DISTRIBUTION WIDTH 13.2 % (11.5-14.5); WHITE BLOOD COUNT 16.1 10^3/uL (4.0-10.0)
[2017-08-22 08:31] LABS: PLATELET COUNT, AUTOMATED 65 10^3/uL (150-450); PLT DIST POS FLAG; SUSPECT SAMPLE POS FLAG
[2017-08-22 08:32] LABS: IMMATURE PLATELET FRACTION % 38.2 % (0.0-9.6); PLATELET F 82
[2017-08-22] MEDS ORDERED: BICITRA 30ML SOLN UDC As Ordered (08:37)
[2017-08-22] MEDS: BICITRA 30ML SOLN UDC PO (08:58)
[2017-08-22 08:59] LABS: ALBUMIN/GLOBULIN RATIO 0.81 (1.00-1.93); ALKALINE PHOSPHATASE 175 U/L (45-117); ALT/SGPT 21 U/L (12-78); ANION GAP 13 MEQ/L (8-16); AST/SGOT 32 U/L (7-37); BILIRUBIN,TOTAL 0.4 MG/DL (0.2-1.0); BLOOD UREA NITROGEN 10 MG/DL (7-18); CALCIUM LEVEL 8.4 MG/DL (8.5-10.1); CARBON DIOXIDE LEVEL 20 MEQ/L (21-32); CHLORIDE LEVEL 105 MEQ/L (98-107); CREATININE FOR GFR 1.04 MG/DL (0.55-1.02); GLOMERULAR FILTRATION RATE > 60.0 (>60); GLUCOSE, FASTING 137 MG/DL (70-105); POTASSIUM SERUM 3.9 MEQ/L (3.5-5.1); SODIUM LEVEL 138 MEQ/L (136-145); TOTAL PROTEIN 6.7 GM/DL (6.4-8.2)
[2017-08-22] MEDS: PRENATAL VITAMINS CHEWABLE TABLET PO (09:00)
[2017-08-22] MEDS: DOCUSATE SODIUM 100 MG CAP PO ×2 (09:00→20:51)
[2017-08-22 09:05] LABS: MAGNESIUM LEVEL 6.9 MG/DL (1.8-2.4)
[2017-08-22 10:17] LABS: CORD GAS HCO3 V 20.4 MEQ/L; CORD GAS O2 SAT V 77.5 %; CORD GAS PCO2 V 43.1 mmHg; CORD GAS PH V 7.293 UNITS; CORD GAS PO2 V 39.3 mmHg; CORD GAS SBC V 19.2 MEQ/L; CORD GAS TCO2 V 21.7 MEQ/L
[2017-08-22 10:19] LABS: CORD GAS O2 SAT A 65.9 %; CORD GAS PCO2 A 53.1 mmHg; CORD GAS PH A 7.254 UNITS; CORD GAS PO2 A 31.5 mmHg; CORD GAS SBC A 19.6 MEQ/L; CORD GAS TCO2 A 24.6 MEQ/L
[2017-08-22] MEDS ORDERED: MAGNESIUM SULFATE 4% INJ 20GM/500ML (40MG/ML) (J3475) As Ordered (10:59)
[2017-08-22] MEDS: MORPHINE 1MG/ML IN 0.9% NACL 100ML IV BAG IV (11:00)
[2017-08-22] MEDS: OXYTOCIN DRIP 30 UNITS in APPROPRIATE DILUENT 1 EA IV (11:00)
[2017-08-22] MEDS ORDERED: METOCLOPRAMIDE INJ 10MG/2ML VIAL (J2765) IV (11:00)
[2017-08-22] MEDS ORDERED: MEASLES,MUMPS,RUBELLA VACCINE INJ (MMR-II) (90707) SC (11:00)
[2017-08-22] MEDS ORDERED: PERCOCET 5MG/325MG TAB PO ×2 (11:00)
[2017-08-22] MEDS ORDERED: RHOGAM 300 MCG (1500 IU) INJ (J2790) IM (11:00)
[2017-08-22] MEDS ORDERED: MORPHINE 1MG/ML IN 0.9% NACL 100ML IV BAG As Ordered (11:24)
[2017-08-22] MEDS ORDERED: diphenhydrAMINE INJ 50MG/ML VIAL (J1200) IV (11:30)
[2017-08-22] MEDS ORDERED: fentaNYL 100 MCG/2 ML INJECTION (J3010) IV (11:30)
[2017-08-22] MEDS ORDERED: MORPHINE 10 MG/ML 1ML VIAL IV (11:30)
[2017-08-22] MEDS ORDERED: ONDANSETRON 4MG/2ML VIAL (J2405) IV ×2 (11:30)
[2017-08-22] MEDS ORDERED: NALBUPHINE HCL 10 MG/ML AMP (J2300) IV (11:30)
[2017-08-22] MEDS ORDERED: EPIDURAL/PCA KEYS XX (11:30)
[2017-08-22] MEDS ORDERED: NALOXONE INJ 0.4 MG/1 ML VIAL (J2310) IV (11:30)
[2017-08-22] MEDS: LACTATED RINGER'S 1000 ML IV (13:31)
[2017-08-22] MEDS: LR 1,000 ML IV ×2 (13:34→19:15)
[2017-08-22 15:59] LABS: HEMATOCRIT 35.6 % (36.0-47.0); MEAN CORPUSCULAR HEMOGLOBIN 31.7 pg (27.0-33.0); MEAN CORPUSCULAR VOLUME 93.2 fl (80.0-96.0); RED BLOOD COUNT 3.82 10^6/uL (4.00-5.40); RED CELL DISTRIBUTION WIDTH 13.3 % (11.5-14.5); WHITE BLOOD COUNT 20.4 10^3/uL (4.0-10.0)
[2017-08-22 16:02] LABS: PLT DIST POS FLAG; SUSPECT SAMPLE POS FLAG
[2017-08-22 16:03] LABS: HEMOGLOBIN 12.1 g/dl (12.0-16.0)
[2017-08-22 16:04] LABS: PLATELET COUNT, AUTOMATED 95 10^3/uL (150-450)
[2017-08-22 16:24] LABS: ALT/SGPT 18 U/L (12-78); AST/SGOT 41 U/L (7-37); BILIRUBIN,TOTAL 0.4 MG/DL (0.2-1.0); CREATININE FOR GFR 0.78 MG/DL (0.55-1.02); GLOMERULAR FILTRATION RATE > 60.0 (>60); LDH LACTATE DEHYDROGENASE 274 U/L (84-246); URIC ACID 6.4 MG/DL (2.6-6.0)
[2017-08-22 16:32] LABS: MAGNESIUM LEVEL 6.9 MG/DL (1.8-2.4)
[2017-08-22] MEDS: PERCOCET 5MG/325MG TAB PO (20:51)
[2017-08-23] MEDS: PERCOCET 5MG/325MG TAB PO ×3 (01:36→12:18)
[2017-08-23 05:33] LABS: HEMATOCRIT 30.7 % (36.0-47.0); HEMOGLOBIN 10.5 g/dl (12.0-16.0); MEAN CORPUSCULAR HEMOGLOBIN 31.5 pg (27.0-33.0); MEAN CORPUSCULAR HGB CONC 34.2 g/dl (32.0-36.5); MEAN CORPUSCULAR VOLUME 92.2 fl (80.0-96.0); RED BLOOD COUNT 3.33 10^6/uL (4.00-5.40); RED CELL DISTRIBUTION WIDTH 13.2 % (11.5-14.5); WHITE BLOOD COUNT 15.4 10^3/uL (4.0-10.0)
[2017-08-23 05:34] LABS: PLATELET COUNT, AUTOMATED 94 10^3/uL (150-450)
[2017-08-23 05:50] LABS: MAGNESIUM LEVEL 6.4 MG/DL (1.8-2.4)
[2017-08-23 05:53] LABS: ALT/SGPT 20 U/L (12-78); AST/SGOT 50 U/L (7-37); BILIRUBIN,TOTAL 0.3 MG/DL (0.2-1.0); CREATININE FOR GFR 0.68 MG/DL (0.55-1.02); GLOMERULAR FILTRATION RATE > 60.0 (>60); LDH LACTATE DEHYDROGENASE 257 U/L (84-246); URIC ACID 6.7 MG/DL (2.6-6.0)
[2017-08-23] MEDS: DOCUSATE SODIUM 100 MG CAP PO ×2 (07:21→20:31)
[2017-08-23] MEDS: PRENATAL VITAMINS CHEWABLE TABLET PO (07:23)
[2017-08-23] MEDS: IBUPROFEN 800 MG TAB PO ×2 (13:25→20:31)
[2017-08-24] MEDS: PERCOCET 5MG/325MG TAB PO ×2 (01:18→10:17)
[2017-08-24] MEDS: IBUPROFEN 800 MG TAB PO ×3 (04:45→20:52)
[2017-08-24 07:10] LABS: HEMATOCRIT 29.7 % (36.0-47.0); MEAN CORPUSCULAR HEMOGLOBIN 31.6 pg (27.0-33.0); MEAN CORPUSCULAR HGB CONC 33.7 g/dl (32.0-36.5); PLATELET COUNT, AUTOMATED 126 10^3/uL (150-450); RED BLOOD COUNT 3.16 10^6/uL (4.00-5.40); RED CELL DISTRIBUTION WIDTH 13.5 % (11.5-14.5); WHITE BLOOD COUNT 13.7 10^3/uL (4.0-10.0)
[2017-08-24 07:19] LABS: MAGNESIUM LEVEL 2.6 MG/DL (1.8-2.4)
[2017-08-24 07:23] LABS: ALBUMIN 2.3 GM/DL (3.2-5.2); ALBUMIN/GLOBULIN RATIO 0.64 (1.00-1.93); ALKALINE PHOSPHATASE 101 U/L (45-117); ALT/SGPT 20 U/L (12-78); ANION GAP 7 MEQ/L (8-16); AST/SGOT 43 U/L (7-37); BILIRUBIN,DIRECT < 0.1 MG/DL (0.0-0.2); BILIRUBIN,TOTAL 0.3 MG/DL (0.2-1.0); BLOOD UREA NITROGEN 13 MG/DL (7-18); CALCIUM LEVEL 8.3 MG/DL (8.5-10.1); CARBON DIOXIDE LEVEL 26 MEQ/L (21-32); CHLORIDE LEVEL 106 MEQ/L (98-107); CREATININE FOR GFR 0.74 MG/DL (0.55-1.02); GLOMERULAR FILTRATION RATE > 60.0 (>60); GLUCOSE, FASTING 79 MG/DL (70-105); POTASSIUM SERUM 3.9 MEQ/L (3.5-5.1); SODIUM LEVEL 139 MEQ/L (136-145); TOTAL PROTEIN 5.9 GM/DL (6.4-8.2); URIC ACID 6.5 MG/DL (2.6-6.0)
[2017-08-24] MEDS: PRENATAL VITAMINS CHEWABLE TABLET PO (07:44)
[2017-08-24] MEDS: DOCUSATE SODIUM 100 MG CAP PO ×2 (07:45→20:52)
[2017-08-24] MEDS: SERTRALINE HCL 50 MG TAB PO (10:10)
[2017-08-25] MEDS: IBUPROFEN 800 MG TAB PO ×2 (05:15→14:24)
[2017-08-25] MEDS: PRENATAL VITAMINS CHEWABLE TABLET PO (09:43)
[2017-08-25] MEDS: DOCUSATE SODIUM 100 MG CAP PO (09:43)
[2017-08-25] MEDS: SERTRALINE HCL 50 MG TAB PO (09:43)
== END 2017-08-25 15:40 | disposition home or self-care (01) | DRG 765 ==
LOC: M LDI 12:39 → M OBS 08-23 04:17
PROVIDERS: Student in an Organized Health Care Education/Training Program
PROC: 10D00Z1 Extraction of Products of Conception, Low, Open Approach (ICD-10-PCS; principal; 2017-08-22 09:28)
PROC: 10907ZC Drainage of Amniotic Fluid, Therapeutic from Products of Conception, Via Natural or Artificial Opening (ICD-10-PCS; 2017-08-22 09:28)
PROC: 3E033VJ Introduction of Other Hormone into Peripheral Vein, Percutaneous Approach (ICD-10-PCS; 2017-08-22 09:28)
DX: O14.14 Severe pre-eclampsia complicating childbirth (principal); O99.12 Other diseases of the blood and blood-forming organs and certain disorders involving the immune mechanism complicating childbirth; Z3A.39 39 weeks gestation of pregnancy; O76 Abnormality in fetal heart rate and rhythm complicating labor and delivery; D69.6 Thrombocytopenia, unspecified; O62.0 Primary inadequate contractions; F32.9 Major depressive disorder, single episode, unspecified; F41.9 Anxiety disorder, unspecified; F43.10 Post-traumatic stress disorder, unspecified; O99.344 Other mental disorders complicating childbirth; Z37.0 Single live birth